=== PATIENT | male | born 1950 | race Caucasian/White ===

== ENCOUNTER 2023-09-19 14:21 | Emergency (ER) | payer OTHER ==
[~2023-09-19] VITALS: Ht 172.7 cm; Wt 79.4 kg
[~2023-09-19 14:21] MED LIST: IBUP400 PO; OMEP20ER PO; SUCR1 PO
[2023-09-19] MEDS ORDERED: STATIN (15:48)
[2023-09-19] MEDS ORDERED: LISI5 (15:48)
[2023-09-19] MEDS ORDERED: HYDROcodone 10-APAP 325 TAB PO ONE (17:20)
[2023-09-19] MEDS ORDERED: HYDROCODONE-AC1 EA10 PO (17:32)
== END 2023-09-19 17:40 | disposition home or self-care (01) ==
LOC: ER 14:21
DX: M25.552 Pain in left hip (principal); Z96.642 Presence of left artificial hip joint; F17.200 Nicotine dependence, unspecified, uncomplicated; I10 Essential (primary) hypertension; E78.5 Hyperlipidemia, unspecified; Z79.899 Other long term (current) drug therapy
CPT/HCPCS: 72170; 99283-25; A9270

== ENCOUNTER 2023-09-29 11:33 | Emergency (ER) | payer OTHER ==
[~2023-09-29] VITALS: Ht 172.7 cm; Wt 77.1 kg
[~2023-09-29 11:33] MED LIST changes: +HYDROCODONE-AC1 EA10 PO; +LISI5; +STATIN
[2023-09-29 12:25] LABS: Mean Corpuscular HGB 25.9 pg (26.0-34.0); Mean Corpuscular HGB Conc 33.3 g/dL (31.5-36.5); Mean Corpuscular Volume 78 fL (80-100); Mean Platelet Volume 10.5 fL (9.1-12.4); Platelet Count 139 K/mm3 (150-400); RDW Coefficient Variation 20.6 % (11.7-14.2); RDW Standard Deviation 46.5 fL (35.1-46.3); Red Blood Cell Count 2.16 M/mm3 (4.30-5.90); White Blood Cell Count 20.48 K/mm3 (4.00-11.30)
[2023-09-29 12:33] LABS: Hemoglobin 5.6 g/dL (13.5-17.5)
[2023-09-29 12:34] LABS: Hematocrit 16.8 % (37.0-53.0)
[2023-09-29 12:55] LABS: Albumin, Blood 3.4 g/dL (3.4-5.0); Albumin/Globulin Ratio 0.8 (0.8-1.8); Bilirubin, Total 0.7 mg/dL (0.1-1.0); Bun/Creatinine Ratio 19.1 (12.0-20.0); Calcium, Blood 9.1 mg/dL (8.5-10.1); Creatinine, Blood 0.84 mg/dL (0.60-1.20); Globulin, Blood 4.3 g/dL (2.2-4.0); Potassium, Blood 4.1 mmol/L (3.5-5.5); Total Protein, Blood 7.7 g/dL (6.4-8.2)
[2023-09-29 12:56] LABS: BAND PERCENT MAN 13 % (0-8); BASOPHILS PERCENT MAN 0 % (0-2); BLASTS PERCENT MAN 2 % (0-0); EOSINOPHILS PERCENT MAN 1 % (0-6); LYMPHOCYTES ABSOLUTE MAN 1.43 K/mm3 (0.84-5.20); LYMPHOCYTES PERCENT MAN 7 % (21-46); METAMYELOCYTE ABSOLUTE MAN 1.22 K/mm3 (0.00-0.00); METAMYELOCYTE PERCENT MAN 6 % (0-0); MONOCYTES PERCENT MAN 0 % (4-13); MYELOCYTE ABSOLUTE MAN 1.63 K/mm3 (0.00-0.00); MYELOCYTE PERCENT MAN 8 % (0-0); NEUTROPHILS ABSOLUTE MAN 15.56 K/mm3 (1.96-9.15); SEG NEUTROPHILS PERCENT MAN 63 % (41-73); TOTAL CELLS COUNTED 100
[2023-09-29 13:53] LABS: International Normalized Ratio 1.05
[2023-09-29] MEDS ORDERED: NS 1,000 ML IV ONE (14:44)
[2023-09-29] MEDS ORDERED: NS 1,000 ML IV SCH (17:25)
[2023-09-29 21:06] LABS: Hematocrit 20.6 % (37.0-53.0)
[2023-10-03] MEDS ORDERED: STIOLTO RESPIMAT4 G1 (12:19)
[2023-10-03] MEDS ORDERED: LISI5 PO (12:19)
[2023-10-03] MEDS ORDERED: Aspir 8181 MG PO (12:19)
[2023-10-03] MEDS ORDERED: ALBU90OI INH (12:19)
[2023-10-03] MEDS ORDERED: MULVITA PO (12:20)
[2023-10-03] MEDS ORDERED: GUAI200 PO (12:20)
[2023-11-01] MEDS ORDERED: DILT120 PO (11:54)
[2023-11-01] MEDS ORDERED: FAMO20 PO (11:55)
[2023-11-01] MEDS ORDERED: TRAM50 PO (11:55)
[2023-11-01] MEDS ORDERED: MIRALAX17 GM PO (11:55)
[2023-11-11] MEDS ORDERED: TRAM50 PO (10:53)
== END 2023-09-29 22:36 | disposition home or self-care (01) ==
LOC: ER 11:33
PROVIDERS: Physician Assistant; Student in an Organized Health Care Education/Training Program
DX: D64.9 Anemia, unspecified (principal); D72.829 Elevated white blood cell count, unspecified; R06.00 Dyspnea, unspecified; C96.9 Malignant neoplasm of lymphoid, hematopoietic and related tissue, unspecified; Z79.899 Other long term (current) drug therapy; I10 Essential (primary) hypertension; J44.9 Chronic obstructive pulmonary disease, unspecified; F17.200 Nicotine dependence, unspecified, uncomplicated
CPT/HCPCS: 36430; 71046; 71260; 80053; 83880; 84484; 85014; 85018; 85025; 85379; 85610; 85730; 86850; 86900; 86901; 86923; 93005; 93010; 99285-25; J7030; P9016; Q9967

== ENCOUNTER 2024-01-16 10:59 | Observation (INO) | payer OTHER ==
[2024-01-16] VITALS (11 sets, daily range): BP systolic 106–135; BP diastolic 61–82
[~2024-01-16] VITALS: Ht 172.7 cm; Wt 55.6 kg
[~2024-01-16 10:59] MED LIST changes: +ALBU90OI INH; +Aspir 8181 MG PO; +DILT120 PO; +FAMO20 PO; +GUAI200 PO; +LISI5 PO; +MIRALAX17 GM PO; +MULVITA PO; +OXYC5 PO; +STIOLTO RESPIMAT4 G1; +TRAM50 PO
[2024-01-16] MEDS ORDERED: [UNRECOGNIZED DRUG - OTHER] (11:20)
[2024-01-16 11:48] LABS: PCO2 Venous 34.1 mmHg (38-42); pH Blood Venous 7.43 (7.34-7.37)
[2024-01-16 11:49] LABS: Base Excess Venous -1.4 mmol/L; Bicarbonate Venous 23.4 mmol/L (24.0-30.0)
[2024-01-16 12:06] LABS: Albumin, Blood 2.8 g/dL (3.4-5.0); Albumin/Globulin Ratio 0.7 (0.8-1.8); Bilirubin, Total 0.6 mg/dL (0.1-1.0); Bun/Creatinine Ratio 23.2 (12.0-20.0); Calcium, Blood 6.5 mg/dL (8.5-10.1); Creatinine, Blood 1.12 mg/dL (0.60-1.20); Potassium, Blood 3.7 mmol/L (3.5-5.5); Total Protein, Blood 6.8 g/dL (6.4-8.2)
[2024-01-16 12:17] LABS: Hematocrit 18.8 % (37.0-53.0); Hemoglobin 6.2 g/dL (13.5-17.5); Mean Corpuscular HGB 28.2 pg (26.0-34.0); Mean Corpuscular Volume 86 fL (80-100); Mean Platelet Volume 11.1 fL (9.1-12.4); NRBC ABSOLUTE 0.71 K/mm3 (0.00-0.02); NRBC Auto 1.8 /100 WBC (0.0-0.2); RDW Coefficient Variation 16.4 % (11.7-14.2); RDW Standard Deviation 50.1 fL (35.1-46.3); White Blood Cell Count 38.86 K/mm3 (4.00-11.30)
[2024-01-16] MEDS ORDERED: CALCIUM GLUC IN NACL, ISO-OSM 50 ML IV ONE (12:20)
[2024-01-16 12:25] LABS: Platelet Count 32 K/mm3 (150-400)
[2024-01-16 12:51] LABS: BAND PERCENT MAN 16 % (0-8); BASOPHILS ABSOLUTE MAN 0.38 K/mm3 (0.00-0.23); BASOPHILS PERCENT MAN 1 % (0-2); BLASTS PERCENT MAN 8 % (0-0); EOSINOPHILS PERCENT MAN 0 % (0-6); LYMPHOCYTES ABSOLUTE MAN 6.99 K/mm3 (0.84-5.20); LYMPHOCYTES PERCENT MAN 18 % (21-46); METAMYELOCYTE ABSOLUTE MAN 1.55 K/mm3 (0.00-0.00); METAMYELOCYTE PERCENT MAN 4 % (0-0); MONOCYTES ABSOLUTE MAN 1.55 K/mm3 (0.16-1.47); MONOCYTES PERCENT MAN 4 % (4-13); MYELOCYTE ABSOLUTE MAN 5.44 K/mm3 (0.00-0.00); MYELOCYTE PERCENT MAN 14 % (0-0); NEUTROPHILS ABSOLUTE MAN 19.43 K/mm3 (1.96-9.15); PROMYELOCYTE ABSOLUTE MAN 0.38 K/mm3 (0.00-0.00); PROMYELOCYTE PERCENT MAN 1 % (0-0); SEG NEUTROPHILS PERCENT MAN 34 % (41-73); TOTAL CELLS COUNTED 100
[2024-01-16] MEDS ORDERED: NS 1,000 ML BAG IR ONE (13:20)
[2024-01-16] MEDS ORDERED: NS 1,000 ML IV SCH (13:25)
[2024-01-16] MEDS ORDERED: Polyethylene Glycol 3350 17 gm PO PRN (14:05)
[2024-01-16] MEDS ORDERED: Ondansetron HCl 2 MG / ML 2ML Vial IV PRN (14:05)
[2024-01-16] MEDS ORDERED: Acetaminophen 325 MG TABLET PO PRN (14:05)
[2024-01-16] MEDS ORDERED: Albuterol HFA200 ACT/6.7 GM INH INH PRN (14:10)
[2024-01-16] MEDS ORDERED: OxyCODONE HCL 5 MG TAB PO PRN (14:10)
[2024-01-16] MEDS ORDERED: Azithromycin 500 MG in NS 250 ML IV SCH (14:30)
[2024-01-16] MEDS ORDERED: CefTRIAXone Sodium 1,000 MG in NS 100 ML IV SCH (14:30)
[2024-01-16] MEDS ORDERED: CALCIUM GLUC IN NACL, ISO-OSM 100 ML IV ONE (15:20)
[2024-01-16 15:41] LABS: Adenovirus Not Detected (NOT DETECT); Bordetella pertussis Not Detected (NOT DETECT); Chlamydophila pneumoniae Not Detected (NOT DETECT); Coronavirus 229E Not Detected (NOT DETECT); Coronavirus HKU1 Not Detected (NOT DETECT); Coronavirus NL63 Not Detected (NOT DETECT); Coronavirus OC43 Not Detected (NOT DETECT); Human Metapneumovirus Not Detected (NOT DETECT); Human Rhinovirus/Enterovirus Not Detected (NOT DETECT); Influenza A/2009-H1 Not Detected (NOT DETECT); Influenza A/H1 Not Detected (NOT DETECT); Influenza A/H3 Not Detected (NOT DETECT); Influenza B Not Detected (NOT DETECT); Mycoplasma pneumoniae Not Detected (NOT DETECT); Parainfluenza Virus 1 Not Detected (NOT DETECT); Parainfluenza Virus 2 Not Detected (NOT DETECT); Parainfluenza Virus 3 Not Detected (NOT DETECT); Parainfluenza Virus 4 Not Detected (NOT DETECT); Respiratory Syncytial Virus Not Detected (NOT DETECT); SARS-Cov-2 (COVID-19), BioFire Not Detected (NOT DETECT)
[2024-01-16] MEDS ORDERED: NS 250 ML IV PRN (16:00)
[2024-01-16] MEDS ORDERED: Calcitriol 0.25 MCG Cap PO SCH (16:00)
[2024-01-16] MEDS ORDERED: NS 500 ML IV SCH (16:00)
[2024-01-16] MEDS ORDERED: Calcium Carbonate 500 MG Tab Chew PO SCH (17:30)
--- NOTE | 2024-01-16 19:03 | NUR ---
Admit/end of shift note. Pt admitted from ED to PCU20. Pt was oriented to room and call light system. First unit of PRBC was running during transfer, Pt tolerated well. Second unit is currently infusing. Pt has been OOB multiple times, noted tachypnea with movement. Voiding small amount. Fair PO intake. Hard stool this evening, possibly needs stool softener due to chronic opiates. was updated after Pt arrival to unit. 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 Pt is able to make needs known , call light is within reach.
[2024-01-16] MEDS ORDERED: Famotidine 20 MG Tab PO SCH (21:00)
[2024-01-16] MEDS ORDERED: Lactobacil 2-S.Thermo-Bifido 1 1 Cap PO SCH (21:00)
[2024-01-16 22:26] LABS: Hematocrit 22.8 % (37.0-53.0); Hemoglobin 7.6 g/dL (13.5-17.5)
[2024-01-17 03:50] LABS: Hematocrit 23.7 % (37.0-53.0); Hemoglobin 7.9 g/dL (13.5-17.5); Mean Corpuscular HGB 27.9 pg (26.0-34.0); Mean Corpuscular HGB Conc 33.3 g/dL (31.5-36.5); Mean Corpuscular Volume 84 fL (80-100); NRBC ABSOLUTE 0.54 K/mm3 (0.00-0.02); NRBC Auto 1.4 /100 WBC (0.0-0.2); RDW Coefficient Variation 15.9 % (11.7-14.2); RDW Standard Deviation 47.8 fL (35.1-46.3); Red Blood Cell Count 2.83 M/mm3 (4.30-5.90)
[2024-01-17 03:52] LABS: Platelet Count 25 K/mm3 (150-400)
[2024-01-17 03:53] VITALS: BP 117/69
[2024-01-17 04:04] LABS: Albumin, Blood 2.5 g/dL (3.4-5.0); Albumin/Globulin Ratio 0.7 (0.8-1.8); Bilirubin, Total 0.5 mg/dL (0.1-1.0); Bun/Creatinine Ratio 22.8 (12.0-20.0); Calcium, Blood 6.4 mg/dL (8.5-10.1); Creatinine, Blood 1.01 mg/dL (0.60-1.20); Globulin, Blood 3.7 g/dL (2.2-4.0); Total Protein, Blood 6.2 g/dL (6.4-8.2)
[2024-01-17 04:22] LABS: BAND PERCENT MAN 23 % (0-8); BASOPHILS PERCENT MAN 0 % (0-2); BLASTS PERCENT MAN 5 % (0-0); EOSINOPHILS ABSOLUTE MAN 0.38 K/mm3 (0.00-0.68); EOSINOPHILS PERCENT MAN 1 % (0-6); LYMPHOCYTES ABSOLUTE MAN 9.88 K/mm3 (0.84-5.20); LYMPHOCYTES PERCENT MAN 26 % (21-46); METAMYELOCYTE ABSOLUTE MAN 1.14 K/mm3 (0.00-0.00); METAMYELOCYTE PERCENT MAN 3 % (0-0); MONOCYTES ABSOLUTE MAN 2.66 K/mm3 (0.16-1.47); MONOCYTES PERCENT MAN 7 % (4-13); MYELOCYTE ABSOLUTE MAN 4.56 K/mm3 (0.00-0.00); MYELOCYTE PERCENT MAN 12 % (0-0); PROMYELOCYTE ABSOLUTE MAN 0.38 K/mm3 (0.00-0.00); PROMYELOCYTE PERCENT MAN 1 % (0-0); SEG NEUTROPHILS PERCENT MAN 22 % (41-73); TOTAL CELLS COUNTED 100
[2024-01-17] MEDS ORDERED: Potassium Chloride 20 MEQ TabCR PO ONE (04:30)
--- NOTE | 2024-01-17 04:45 | NUR ---
SHIFT SUMMARY THIS RN ASSUMED CARE AT APPROX 1915. NO ACUTE EVENTS OVERNIGHT. PATIENT SLEPT T/O - EASILY AROUSABLE WITH VERBAL STIMULI. ALERT AND ORIENTED X4. PERRLA. MOVES ALL EXTREMITIES EQUALLY WITH GENERALIZED WEAKNESS T/O. RECEIVED A TOTAL OF 2 UNITS PRBCs. HEMOGLOBIN 7.9 THIS MORNING. MD WARD NOTIFIED OF CRITICALLY LOW PLATELET COUNT OF 25 (SEE CRITICAL VALUE DOCUMENTATION). VSS. TELEMETRY SHOWING SINUS 80s-90s. DENIES CHEST PAIN, PRESSURE. ON BASELINE 2L VIA NC, SATs >90%. MILD TACHYPNEA AT REST, RR 20-25, WITH OCCASIONAL CONGESTED COUGH. PATIENT USES URINAL INDEPENDENTLY IN BED. REPOSITIONS HIMSELF WITH MINIMAL TO NO ASSIST FROM STAFF. CALL LIGHT IN REACH. WILL CONTINUE TO MONITOR AND REPORT TO ONCOMING RN.
[2024-01-17] MEDS ORDERED: Potassium Chloride 40 MEQ in NS 250 ML IV ONE (07:30)
[2024-01-17] MEDS ORDERED: Calcium Chloride 10% 2,000 MG in NS 100 ML IV ONE (07:35)
[2024-01-17] MEDS ORDERED: Furosemide 20 MG Tab PO ONE (07:40)
[2024-01-17 07:41] VITALS: BP 116/63
[2024-01-17] MEDS ORDERED: LevoFLOXacin 500MG/D5W 100ML 100 ML IV SCH (09:00)
[2024-01-17] MEDS ORDERED: CALC.25 PO (11:47)
[2024-01-17] MEDS ORDERED: Acetaminophen650 M1 PO (11:47)
[2024-01-17] MEDS ORDERED: Calcium Carbon500 MG PO (11:48)
[2024-01-17] MEDS ORDERED: FAMO20 PO (11:49)
[2024-01-17] MEDS ORDERED: VISBIOME 112.51 EACH PO (11:51)
[2024-01-17] MEDS ORDERED: LEVFLO500 PO (11:52)
[2024-01-17] MEDS ORDERED: DOXY100 PO (13:18)
[2024-01-17] MEDS ORDERED: [UNRECOGNIZED DRUG - OTHER] PO (13:19)
--- NOTE | 2024-01-17 14:30 | NUR ---
Discharge note. Pt and were given discharge instructions. All questions were answered. IV sites removed. Pt was escorted to the door. All belongings were taken with the Pt. to transport home.
== END 2024-01-17 14:45 | disposition home or self-care (01) ==
LOC: ER 10:59 → PCU 11:00 → ER 14:40 → PCU 15:03
PROVIDERS: Emergency Medicine; Family Medicine; ADMIT Internal Medicine
DX: D75.81 Myelofibrosis (principal); D69.6 Thrombocytopenia, unspecified; E83.51 Hypocalcemia; J44.9 Chronic obstructive pulmonary disease, unspecified; J96.21 Acute and chronic respiratory failure with hypoxia; R05.3 Chronic cough; R53.81 Other malaise; E87.6 Hypokalemia; I10 Essential (primary) hypertension; E78.5 Hyperlipidemia, unspecified; M16.10 Unilateral primary osteoarthritis, unspecified hip; C96.6 Unifocal Langerhans-cell histiocytosis; G89.29 Other chronic pain; N48.6 Induration penis plastica; Z51.5 Encounter for palliative care; Z87.891 Personal history of nicotine dependence; Z99.81 Dependence on supplemental oxygen
CPT/HCPCS: 0202U; 36415; 36430; 71045; 80053; 82330; 82803; 83880; 84145; 84484; 85014; 85018; 85025; 86850; 86900; 86901; 86923; 93005; 93010; 94762; 96365; 96367; 96368; 96375; 99285-25; A9270; G0378; J0456; J0612; J0696; J1956; J3480; J7030; J7050; P9016

== ENCOUNTER 2024-01-28 17:00 | Inpatient (IN) | payer OTHER ==
[~2024-01-28] VITALS: Ht 173 cm; Wt 56.2 kg
[~2024-01-28 17:00] MED LIST changes: +Acetaminophen650 M1 PO; +CALC.25 PO; +Calcium Carbon500 MG PO; +DOXY100 PO; +LEVFLO500 PO; +VISBIOME 112.51 EACH PO; +[UNRECOGNIZED DRUG - OTHER]; +[UNRECOGNIZED DRUG - OTHER] PO
[2024-01-28] MEDS ORDERED: [UNRECOGNIZED DRUG - OTHER] (17:19)
[2024-01-28 17:46] LABS: Hematocrit 18.9 % (37.0-53.0); Hemoglobin 6.4 g/dL (13.5-17.5); Mean Corpuscular HGB 27.6 pg (26.0-34.0); Mean Corpuscular HGB Conc 33.9 g/dL (31.5-36.5); Mean Corpuscular Volume 82 fL (80-100); NRBC Auto 0.2 /100 WBC (0.0-0.2); RDW Coefficient Variation 15.7 % (11.7-14.2); Red Blood Cell Count 2.32 M/mm3 (4.30-5.90); White Blood Cell Count 46.31 K/mm3 (4.00-11.30)
[2024-01-28 17:50] LABS: Albumin, Blood 2.4 g/dL (3.4-5.0); Albumin/Globulin Ratio 0.6 (0.8-1.8); Bilirubin, Total 0.6 mg/dL (0.1-1.0); Bun/Creatinine Ratio 19.5 (12.0-20.0); Calcium, Blood 6.1 mg/dL (8.5-10.1); Creatinine, Blood 2.36 mg/dL (0.60-1.20); Globulin, Blood 4.2 g/dL (2.2-4.0); Potassium, Blood 4.3 mmol/L (3.5-5.5); Total Protein, Blood 6.6 g/dL (6.4-8.2)
[2024-01-28 17:51] LABS: Platelet Count 23 K/mm3 (150-400)
[2024-01-28 18:15] LABS: BAND PERCENT MAN 4 % (0-8); BASOPHILS ABSOLUTE MAN 0.46 K/mm3 (0.00-0.23); BASOPHILS PERCENT MAN 1 % (0-2); EOSINOPHILS PERCENT MAN 0 % (0-6); LYMPHOCYTES ABSOLUTE MAN 13.42 K/mm3 (0.84-5.20); LYMPHOCYTES PERCENT MAN 29 % (21-46); METAMYELOCYTE ABSOLUTE MAN 0.92 K/mm3 (0.00-0.00); METAMYELOCYTE PERCENT MAN 2 % (0-0); MONOCYTES ABSOLUTE MAN 2.31 K/mm3 (0.16-1.47); MONOCYTES PERCENT MAN 5 % (4-13); NEUTROPHILS ABSOLUTE MAN 19.45 K/mm3 (1.96-9.15); SEG NEUTROPHILS PERCENT MAN 38 % (41-73); TOTAL CELLS COUNTED 100
[2024-01-28 18:16] LABS: BLASTS PERCENT MAN 9 % (0-0); MYELOCYTE ABSOLUTE MAN 5.09 K/mm3 (0.00-0.00); MYELOCYTE PERCENT MAN 11 % (0-0); PROMYELOCYTE ABSOLUTE MAN 0.46 K/mm3 (0.00-0.00); PROMYELOCYTE PERCENT MAN 1 % (0-0)
[2024-01-28] MEDS ORDERED: NS 1,000 ML IV SCH ×3 (18:35→22:00)
[2024-01-28] MEDS ORDERED: CefTRIAXone Sodium 1,000 MG in NS 100 ML IV ONE (18:35)
[2024-01-28] MEDS ORDERED: Azithromycin 500 MG in NS 250 ML IV ONE (18:35)
[2024-01-28 19:21] LABS: PCO2 Venous 26.9 mmHg (38-42); pH Blood Venous 7.57 (7.34-7.37)
[2024-01-28 19:22] LABS: Base Excess Venous 2.8 mmol/L; Bicarbonate Venous 26.8 mmol/L (24.0-30.0)
[2024-01-28] MEDS ORDERED: OxyCODONE 7.5 mg/Acetam 325 mg TABLET PO ONE (20:45)
[2024-01-28] MEDS ORDERED: OxyCODONE HCL 5 MG TAB PO PRN (21:20)
[2024-01-28] MEDS ORDERED: Calcium Carbonate 500 MG Tab Chew PO PRN (21:20)
[2024-01-28] MEDS ORDERED: Ipratropium/Albuterol SulF 2.5-0.5MG/3 ML Amp INH SCH (21:25)
[2024-01-28] MEDS ORDERED: Lactated Ringer's 1,000 ML IV SCH (21:25)
[2024-01-28] MEDS ORDERED: Acetaminophen 325 MG TABLET PO PRN (21:35)
[2024-01-28] MEDS ORDERED: Magnesium Hydroxide Conc 10 ML UDC PO PRN (21:35)
[2024-01-28] MEDS ORDERED: Albuterol HFA200 ACT/6.7 GM INH INH PRN (21:40)
[2024-01-28] MEDS ORDERED: NS 250 ML IV PRN (22:35)
[2024-01-28 22:37] VITALS: BP 96/64
[2024-01-28 22:54] VITALS: BP 92/70
[2024-01-28 23:16] VITALS: BP 95/64
--- NOTE | 2024-01-28 23:31 | NUR ---
ADMISSION/UPDATE PATIENT ARRIVED TO PCU 02 AROUND 0, PATIENT MOVED TO PCU BED WITH ASSISTANCE OF STAFF. FIRST UNIT PRBC COMPLETED IN ER. SENT FOR SECOND UNIT WHEN PATIENT ARRIVED TO UNIT. PATIENT ALERT, ORIENTED TO SELF AT THIS TIME, PLEASANTLY CONFUSED. BED ALARM ON FOR SAFETY. BP SOFT ON ARRIVAL, TELE READING SR 100s W/ QTC .52. NOTED PETECHIAE/BRUISING ON LOWER RIBS, ON ABDOMEN TO LOWER TORSO. ER PLACED DRESSING TO COCCYX. DRESSING PULLED BACK WITH NOTED REDNESS AND SMALL OPEN SPOT, BARELY BLANCHABLE. ATTENDS IN PLACE D/T INCONTNIENCE, WILL PLACE LEMA PER DR. MARIA ORDER. CRITICAL LABS CALLED TO THIS RN. NO NEW ORDERS RECEIVED. ORDER WAS PLACED FOR LEMA INSERTION ON ADMISSION, PER DR. MARIA, INSERT LEMA D/T BRENDA, SEND UA AND MONITOR I/Os. PATIENT REMAINS STABLE AT THIS TIME. CALL LIGHT IN REACH.
[2024-01-29] VITALS (12 sets, daily range): BP systolic 94–117; BP diastolic 58–83
[2024-01-29 00:01] LABS: Source, Urine Foley catheter
[2024-01-29 00:08] LABS: Bilirubin, Urine Neg (Neg); Blood, Urine 3+ (Neg); Glucose Qualitative, Urine Neg (Neg); Ketones, Urine Neg (Neg); Leukocyte Esterase, Urine 1+ (Neg); Nitrite, Urine Neg (Neg); Protein, Urine 3+ (Neg); Urobilinogen, Urine NORM (Normal)
[2024-01-29 00:23] LABS: Appearance, Urine Hazy (Clear); Color, Urine Yellow (P-Yellow)
[2024-01-29 00:24] LABS: Amorphous Heavy (0-Heavy); Bacteria Many /hpf; Mucus Light (0-Heavy); Squamous Epithelial Cells Few /hpf (Few)
[2024-01-29 03:31] LABS: Hemoglobin 7.7 g/dL (13.5-17.5); Mean Corpuscular HGB 28.7 pg (26.0-34.0); Mean Corpuscular HGB Conc 33.5 g/dL (31.5-36.5); Mean Corpuscular Volume 86 fL (80-100); NRBC ABSOLUTE 0.04 K/mm3 (0.00-0.02); NRBC Auto 0.1 /100 WBC (0.0-0.2); RDW Coefficient Variation 15.5 % (11.7-14.2); RDW Standard Deviation 48.7 fL (35.1-46.3); Red Blood Cell Count 2.68 M/mm3 (4.30-5.90); White Blood Cell Count 30.14 K/mm3 (4.00-11.30)
[2024-01-29 03:37] LABS: Platelet Count 16 K/mm3 (150-400)
[2024-01-29 03:52] LABS: Albumin, Blood 2.3 g/dL (3.4-5.0); Albumin/Globulin Ratio 0.6 (0.8-1.8); Bilirubin, Total 0.6 mg/dL (0.1-1.0); Bun/Creatinine Ratio 21.8 (12.0-20.0); Calcium, Blood 5.4 mg/dL (8.5-10.1); Creatinine, Blood 2.29 mg/dL (0.60-1.20); Potassium, Blood 3.9 mmol/L (3.5-5.5); Total Protein, Blood 6.3 g/dL (6.4-8.2)
[2024-01-29 04:27] LABS: BAND PERCENT MAN 17 % (0-8); BASOPHILS PERCENT MAN 0 % (0-2); BLASTS PERCENT MAN 5 % (0-0); EOSINOPHILS PERCENT MAN 3 % (0-6); LYMPHOCYTES % ATYPICAL MANUAL 1 % (0-0); LYMPHOCYTES ABSOLUTE MAN 11.75 K/mm3 (0.84-5.20); LYMPHOCYTES PERCENT MAN 38 % (21-46); METAMYELOCYTE PERCENT MAN 3 % (0-0); MONOCYTES ABSOLUTE MAN 3.31 K/mm3 (0.16-1.47); MONOCYTES PERCENT MAN 11 % (4-13); MYELOCYTE ABSOLUTE MAN 2.41 K/mm3 (0.00-0.00); MYELOCYTE PERCENT MAN 8 % (0-0); NEUTROPHILS ABSOLUTE MAN 9.34 K/mm3 (1.96-9.15); SEG NEUTROPHILS PERCENT MAN 14 % (41-73); TOTAL CELLS COUNTED 100
--- NOTE | 2024-01-29 06:01 | NUR ---
SHIFT SUMMARY PATIENT ALERT, ORIENTED x1. PLEASANTLY CONFUSED. PATIENT EASILY REDIRECTED. BED ALARM ON FOR SAFETY PATIENT IS RESTLESS. BP SOFT DURING THE NIGHT, MAP >65. PATIENT ON 5L NC, WILL DESAT AND BECOME TACHYPNEIC WITH ANY ACTIVITY. LEMA PLACED PER ORDER ON ADMISSION. PATIENT IS 1 PERSON ASSIST TO BEDSIDE COMMODE. PATIENT HAD LARGE BM THIS SHIFT. PATIENT ALSO RECEIVED 2u PRBCs. SIGNIFICANT NOTED BRUISING/PETECHIAE THROUGHOUT. NO OTHER CHANGES THIS SHIFT, WILL REPORT TO DAY SHIFT RN.
[2024-01-29] MEDS ORDERED: Calcium Gluconate 10% 100 MG/ML INJ IV ONE (06:15)
[2024-01-29] MEDS ORDERED: CALCIUM GLUC IN NACL, ISO-OSM 100 ML IV ONE (06:20)
[2024-01-29] MEDS ORDERED: CALCIUM GLUC IN NACL, ISO-OSM 50 ML IV ONE (07:20)
[2024-01-29] MEDS ORDERED: Calcitriol 0.25 MCG Cap PO SCH (09:00)
[2024-01-29] MEDS ORDERED: Lactobacil 2-S.Thermo-Bifido 1 1 Cap PO SCH (09:00)
[2024-01-29] MEDS ORDERED: Famotidine 20 MG Tab PO SCH (09:00)
[2024-01-29 09:44] LABS: Hematocrit 22.5 % (37.0-53.0); Hemoglobin 7.6 g/dL (13.5-17.5); Mean Corpuscular HGB 28.9 pg (26.0-34.0); Mean Corpuscular HGB Conc 33.8 g/dL (31.5-36.5); Mean Corpuscular Volume 86 fL (80-100); NRBC ABSOLUTE 0.06 K/mm3 (0.00-0.02); NRBC Auto 0.3 /100 WBC (0.0-0.2); RDW Coefficient Variation 15.4 % (11.7-14.2); RDW Standard Deviation 47.5 fL (35.1-46.3); Red Blood Cell Count 2.63 M/mm3 (4.30-5.90); White Blood Cell Count 17.67 K/mm3 (4.00-11.30)
[2024-01-29 09:50] LABS: Platelet Count 15 K/mm3 (150-400)
[2024-01-29 10:11] LABS: BAND PERCENT MAN 16 % (0-8); BASOPHILS PERCENT MAN 0 % (0-2); BLASTS PERCENT MAN 9 % (0-0); EOSINOPHILS PERCENT MAN 0 % (0-6); LYMPHOCYTES PERCENT MAN 17 % (21-46); METAMYELOCYTE ABSOLUTE MAN 1.23 K/mm3 (0.00-0.00); METAMYELOCYTE PERCENT MAN 7 % (0-0); MONOCYTES ABSOLUTE MAN 1.23 K/mm3 (0.16-1.47); MONOCYTES PERCENT MAN 7 % (4-13); MYELOCYTE ABSOLUTE MAN 1.59 K/mm3 (0.00-0.00); MYELOCYTE PERCENT MAN 9 % (0-0); NEUTROPHILS ABSOLUTE MAN 8.65 K/mm3 (1.96-9.15); PLASMA CELL ABSOLUTE MAN 0.17 K/mm3 (0.00-0.00); PLASMA CELLS PERCENT MAN 1 % (0-0); PROMYELOCYTE ABSOLUTE MAN 0.17 K/mm3 (0.00-0.00); PROMYELOCYTE PERCENT MAN 1 % (0-0); SEG NEUTROPHILS PERCENT MAN 33 % (41-73); TOTAL CELLS COUNTED 100
[2024-01-29] MEDS ORDERED: Calcium Carbonate 500 MG Tab Chew PO SCH (12:30)
--- NOTE | 2024-01-29 15:05 | NUR ---
Case Conference: Met with pt and Coco. Pt appears pale and frail, reports feeling SOB but denies pain. states they have been waiting for a consult by an oncologist in [place], ordered by Dr. Montenegro to make recommendations for treatment. However, bedside RN reports Mile at Dr. Montenegro office stated there are no new treatment options, and pt's prognosis is poor. In my discussion with pt's , we did discuss the upcoming appt on February 02. In talking with Coco, I stated it appears very unlikely the patient would be strong enough to tolerate future cancer treatments, and Coco does agree. She began to cry, stating she "just needs to know what the prognosis is." The patient slept through most of the visit, but stated the patient has lost a significant amount of weight over the past month, is barely eating or drinking, and sleeping almost 24 hours a day. I gently mentioned hospice as a possible next step, and she requests discussing this option with Dr. Montenegro tomorrow. Patient is currently dependent of blood transfusions and requires oxygen. Discussed with Dr. Stewart. Will see pt again tomorrow.
--- NOTE | 2024-01-29 15:16 | NUR ---
Patient is a , and connected with [place] [facility] and with [facility] Shabnam Rick. Will f/u with Layla from Palliative tomorrow.
--- NOTE | 2024-01-29 17:44 | NUR ---
SHIFT SUMMARY; ASSUMED CARE AT 0700. A/A/OX2-3 WITH INTERMITANT CONFUSION. PLEASANT AND COOPERATIVE WITHCARE BUT HAS DIFFICULTY FOLLOWING INSTRUCTIONS. 2-4L O2 VIA NC. SATS 92-96% BUT BREATHING BECOMES EXTREMLY LABORED WITH EXERTION BUT MAINTAINS IN 90'S. MOVES SELF ON BED WITH DIFFICULTY AND STATES IS WEAK. LEMA IN PLACE DRAINING TO GRAVITY. MEPILEX TO COCCYX, BRUSING T/O TORSO BOTH FRONT AND BACK. PER NOTES PT HAS HAD FOR A FEW DAYS BUT IS GETTING WORSE, POOR HISTORIAN AT THIS TIME. RAYRAY MET WITH SPOUSE TODAY, RECIEVED PHONE CALL FROM DAINE CASTILLO RN AT [facility] TODAY WHO STATED PT IS ESTABLISHED WITH HER AND SHE WILL CONTINUE TO FOLLOW. SHE STATES DR. COHEN HAD DISCUSSED PT WITH A DOCTOR AND [facility] AND PT MAY HAVE ACUTE LEUKEMIA. PT HAS APPOINTMENT TUESDAY WITH THE DOCTOR AT [facility]. WILL CONTINUE TO MONITOR AND TREAT UNTIL CHANGE OF SHIFT.
[2024-01-29] MEDS ORDERED: CefTRIAXone Sodium 1,000 MG in NS 100 ML IV SCH (19:00)
[2024-01-29] MEDS ORDERED: Azithromycin 500 MG in NS 250 ML IV SCH (21:00)
[2024-01-30] MEDS ORDERED: NS 500 ML IV SCH (03:10)
--- NOTE | 2024-01-30 03:12 | NUR ---
TRANSFER/SHIFT SUMMARY PATIENT MEDICAL NO TELE STATUS. PATIENT ORIENTED x2, ABLE TO MAKE NEEDS KNOWN TO STAFF BUT IS INTERMITTENTLY CONFUSED. PATIENT ON 2-3L NC WITH SPO2 >90%. BP STABLE. LEMA IN PLACE DRAINING DARK YELLOW URINE. PATIENT HAS SLEPT FOR MAJORITY OF SHIFT WITH EXCEPTION OF REPOSITIONING. CALL PLACED TO MEDICAL FLOOR RN FOR REPORT. PATIENT TRANSFERRED TO [facility] WITH ALL BELONGINGS AND CHART.
[2024-01-30 03:20] VITALS: BP 120/72
[2024-01-30 04:00] LABS: Hematocrit 25.6 % (37.0-53.0); Hemoglobin 8.6 g/dL (13.5-17.5); Mean Corpuscular HGB 28.8 pg (26.0-34.0); Mean Corpuscular HGB Conc 33.6 g/dL (31.5-36.5); Mean Corpuscular Volume 86 fL (80-100); NRBC ABSOLUTE 0.09 K/mm3 (0.00-0.02); NRBC Auto 0.3 /100 WBC (0.0-0.2); RDW Coefficient Variation 15.8 % (11.7-14.2); RDW Standard Deviation 49.3 fL (35.1-46.3); Red Blood Cell Count 2.99 M/mm3 (4.30-5.90); White Blood Cell Count 32.22 K/mm3 (4.00-11.30)
[2024-01-30 04:07] LABS: Platelet Count 19 K/mm3 (150-400)
[2024-01-30 04:21] LABS: Albumin, Blood 2.2 g/dL (3.4-5.0); Anion Gap 15 mmol/L (3-11); Blood Urea Nitrogen 48 mg/dL (8-24); Bun/Creatinine Ratio 27.1 (12.0-20.0); CO2, Blood 22 mmol/L (21-32); Calcium, Blood 6.1 mg/dL (8.5-10.1); Chloride, Blood 102 mmol/L (98-108); Creatinine, Blood 1.77 mg/dL (0.60-1.20); Glomerular Filtration Rate 40 (60-); Glucose, Blood 88 mg/dL (70-99); Magnesium, Blood 2.2 mg/dL (1.6-2.4); Phosphorus, Blood 5.8 mg/dL (2.5-4.9); Potassium, Blood 3.2 mmol/L (3.5-5.5); Sodium, Blood 136 mmol/L (136-145)
[2024-01-30] MEDS ORDERED: Potassium Chloride 20 MEQ TabCR PO ONE (04:35)
--- NOTE | 2024-01-30 04:44 | NUR ---
TOOK REPORT ON PT COMING FROM PCU 02 FROM RN @ 0310. PT ARRIVED ON UNIT @ 0317 IN BED AND SWITCHED BEDS OUT. PT HAD ALL BELONGINGS WITH THEM AND WAS ON 3L/NC. ASSUMED CARE OF PT.
--- NOTE | 2024-01-30 04:46 | NUR ---
AM LABS SHOWED PT CALCIUM 6.1 UP FROM 5.4. POTASSIUM 3.2 40 MEQ PO X 1 ORDERED. PHOS 5.8. WBC INCREASED FROM 17.67 TO 32.22. HOSPITALIST NOTIFIED AND STATED THAT THEY WILL LOOK OVER CHART AND SUBMIT ORDERS FOR TREATMENT.
[2024-01-30] MEDS ORDERED: CALCIUM GLUC IN NACL, ISO-OSM 50 ML IV ONE (04:55)
--- NOTE | 2024-01-30 04:56 | NUR ---
UPON ADMIT TO FLOOR HEAD TO TOE ASSESSMENT PERFORMED. THIS RN AGREES WITH PCU NURSE SHIFT ASSESSMENT.
[2024-01-30 07:26] VITALS: BP 126/80
[2024-01-30] MEDS ORDERED: Calcium Acetate 667 MG Gel Cap PO SCH (08:30)
[2024-01-30 12:11] LABS: Base Excess Venous -3.3 mmol/L; Bicarbonate Venous 22.1 mmol/L (24.0-30.0); PCO2 Venous 31.6 mmHg (38-42); pH Blood Venous 7.43 (7.34-7.37)
[2024-01-30 15:12] VITALS: BP 103/80
--- NOTE | 2024-01-30 15:27 | NUR ---
DR. LOW NOTIFIED WITH C/O ABNORMAL VITAL SIGNS. RT PLANS TO PLACE PT ON HEATED HIGHFLOW IN HOPES OF DECREASING WOB. CONTINUE TO MONTITOR BLOOD PRESSURE AND HEART RATE
[2024-01-30] MEDS ORDERED: LORazepam 2 MG/ML 1ML Injection IV ONE (16:35)
[2024-01-30] MEDS ORDERED: LORazepam 1 MG Tab PO PRN (16:35)
--- NOTE | 2024-01-30 16:51 | NUR ---
Mile Pereira from Dr. Toth's office is going to see pt this afternoon to further discuss pt's options. Mile tells me the reason it has taken so long for the oncology consult from the in [place] is because he was waiting on test results and wanted to consult when the tests had completed. No other new information at this time, will wait until pt has his virtual appt with [facility].
[2024-01-30 17:58] VITALS: BP 122/87
--- NOTE | 2024-01-30 18:04 | NUR ---
PT PULSE 125, RR 32. PT IS HALLUCINATING. DR. LOW NOTIFIED. ORDER FOR EKG PLACED.
--- NOTE | 2024-01-30 19:10 | NUR ---
PT IS HALLUCINATING, PULLING AIRVO AND PULSE OX OFF, CONFUSED AND VERY HARD TO UNDERSTAND. EKG SHOWS SINUS RHYTHM. DISCUSSED WITH MD AND SONG LYRICIST CONCERN FOR PT CONTINUED TACHYCARDIA AND TACYPNEA.
[2024-01-30] MEDS ORDERED: NS 1,000 ML IV SCH (20:20)
[2024-01-30 20:26] VITALS: BP 114/85
[2024-01-31 04:00] VITALS: BP 129/86
[2024-01-31 04:40] LABS: Hematocrit 26.6 % (37.0-53.0); Hemoglobin 8.6 g/dL (13.5-17.5); Mean Corpuscular HGB 28.4 pg (26.0-34.0); Mean Corpuscular HGB Conc 32.3 g/dL (31.5-36.5); Mean Corpuscular Volume 88 fL (80-100); NRBC ABSOLUTE 0.18 K/mm3 (0.00-0.02); NRBC Auto 0.4 /100 WBC (0.0-0.2); RDW Coefficient Variation 16.2 % (11.7-14.2); RDW Standard Deviation 51.5 fL (35.1-46.3); Red Blood Cell Count 3.03 M/mm3 (4.30-5.90); White Blood Cell Count 44.83 K/mm3 (4.00-11.30)
[2024-01-31 04:48] LABS: Platelet Count 21 K/mm3 (150-400)
--- NOTE | 2024-01-31 04:49 | NUR ---
NOC SHIFT SUMMARY PT REQUIRING 6L O2 NC ALL NIGHT. HE HAS BEEN CONFUSED AND HALLUCINATING, FREQUENTLY PULLING OFF O2 AND SPO2 MONITOR. ABLE TO AVOID RESTRAINTS WITH VERY FREQUENT INTERVENTIONS. HIS RR HAS BEEN IN THE 30S WITH LABORED BREATHING AND HIS URINE OUTPUT WAS LOW ALL DAY. HRS HAVE BEEN IN THE 100S-120. ALL OF THE ABOVE DISCUSSED WITH DR. GRIFFIN. ORDERS RECEIVED FOR A LACTIC ACID AND NS @100 X 1 LITER. WHEN HE PULLS HIS O2 OFF HE DESATS TO 79%-83%. FALL PRECAUTIONS IN PLACE, BED ALARM ON, CALL LIGHT WITHIN REACH.
[2024-01-31 05:00] LABS: Albumin, Blood 2.2 g/dL (3.4-5.0); Anion Gap 14 mmol/L (3-11); Blood Urea Nitrogen 49 mg/dL (8-24); Bun/Creatinine Ratio 37.7 (12.0-20.0); CO2, Blood 21 mmol/L (21-32); Calcium, Blood 6.6 mg/dL (8.5-10.1); Chloride, Blood 106 mmol/L (98-108); Glomerular Filtration Rate 58 (60-); Glucose, Blood 92 mg/dL (70-99); Phosphorus, Blood 5.7 mg/dL (2.5-4.9); Potassium, Blood 3.4 mmol/L (3.5-5.5); Sodium, Blood 138 mmol/L (136-145)
[2024-01-31 05:20] LABS: BAND PERCENT MAN 9 % (0-8); BASOPHILS PERCENT MAN 0 % (0-2); BLASTS PERCENT MAN 6 % (0-0); EOSINOPHILS PERCENT MAN 0 % (0-6); LYMPHOCYTES % ATYPICAL MANUAL 3 % (0-0); LYMPHOCYTES ABSOLUTE MAN 18.82 K/mm3 (0.84-5.20); LYMPHOCYTES PERCENT MAN 39 % (21-46); METAMYELOCYTE ABSOLUTE MAN 0.89 K/mm3 (0.00-0.00); METAMYELOCYTE PERCENT MAN 2 % (0-0); MONOCYTES ABSOLUTE MAN 4.93 K/mm3 (0.16-1.47); MONOCYTES PERCENT MAN 11 % (4-13); MYELOCYTE ABSOLUTE MAN 8.06 K/mm3 (0.00-0.00); MYELOCYTE PERCENT MAN 18 % (0-0); NEUTROPHILS ABSOLUTE MAN 9.41 K/mm3 (1.96-9.15); SEG NEUTROPHILS PERCENT MAN 12 % (41-73); TOTAL CELLS COUNTED 100
[2024-01-31 07:21] VITALS: BP 126/87
[2024-01-31] MEDS ORDERED: Potassium Chloride 10 Meq Tablet SA PO ONE (08:35)
[2024-01-31] MEDS ORDERED: CALCIUM GLUC IN NACL, ISO-OSM 100 ML IV ONE (08:50)
--- NOTE | 2024-01-31 09:48 | NUR ---
DISCUSSED LEMA CATHETER WITH DR. LOW. PER DR. LOW KEEP LEMA CATHETER IN FOR STRICT I&O'S, REMAINS CRITICALLY ILL.
[2024-01-31] MEDS ORDERED: Piperacillin/Tazobactam Sod 4.5 GM in NS 100 ML IV SCH (12:30)
[2024-01-31] MEDS ORDERED: Vancomycin HCL 1,500 MG in NS 250 ML IV ONE (12:40)
[2024-01-31] MEDS ORDERED: Lactated Ringer's 1,000 ML IV SCH (14:50)
[2024-01-31 15:23] VITALS: BP 115/79
[2024-01-31] MEDS ORDERED: Morphine Sulfate 4 MG/1 ML Injection IV PRN (15:55)
--- NOTE | 2024-01-31 18:06 | NUR ---
SHIFT SUMMARY: PT IS A/O X SELF AND FAMILY. PT HAS BEEN CONFUSED AND HAS BEEN OBSERVED TALKING TO HIMSELF, POSSIBLE HALLUCINATIONS, WHEN ALONE IN ROOM. PT IS PLEASANT AND COOPERATIVE WITH CARE. ATTEMPTED TO GET OOB ALONE ONE TIME TODAY. DOES OCCASIONALLY PULL OFF OXYGEN TUBING. PT ON 4 LPM VIA NC. HE DOES MOUTH BREATH WHEN ASLEEP AND NEEDS O2 INCREASED TO 6 LPM VIA NC TO KEEP O2 SATS ABOVE 90%. HE DROPS TO 86% WHEN HE TAKES OXYGEN OFF. HE DOES GET SOB AT TIMES. BREATHING TX HELP SIGNIFICANTLY. PT NPO THROUGHOUT THE DAY DUE TO CONCERNS OF ASPIRATION. PT REPOSITIONED Q2 HOURS. PT DOES MOVE SELF IN BED AND REPOSITIONS SELF. PT HAS HAD ORAL CARE Q 2 HOURS. EVAL DONE BY DENTAL HYGIENIST AND PROVIDED ORAL GEL, DOES NOT RECOMMEND LEMON SWABS. PT HAD DRIED SCANT AMOUNT OF BLOOD IN MOUTH THIS MORNING WITH NO SOURCE FOUND. SINCE ORAL CARE COMPLETED NO FURTHER BLOODY DISCHARGE. PT HAS BEEN VERY SLEEPY BUT AROUSES EASILY WHEN CHECKED ON. LIANE SWALLOW EVAL SCHEDULED FOR TOMORROW.
[2024-01-31 19:56] VITALS: BP 109/76
[2024-02-01 03:20] VITALS: BP 119/87
--- NOTE | 2024-02-01 04:49 | NUR ---
SHIFT SUMMARY: "SHANITA" IS A&OX2. VSS, NO ACUTE EVENTS THIS SHIFT. PT REMAINS TACHYPNEIC, MAINTAINING SATS 88-93% ON 4-5 L VIA NC, CONTINUOUS PULSE OX IN PLACE. PT IS NPO WHILE AWAITING SWALLOW STUDY, ORAL CARE PROVIDED PT ALLOWED. BILATERAL IV'S PATENT, IV FLUIDS INFUSING. LEMA PATENT, DRAINING YELLOW URINE WITH SEDIMENT. ATTENDS IN PLACE. PT DID HAVE A BOWEL MOVEMENT THIS SHIFT. PT HAS COMPLAINED OF PAIN WHICH HE REPORTS HAS IMPROVED TO THE POINT HE COULD SLEEP WITH MEDICATIONS PER SEP. BED ALARM ON FOR SAFETY. HE IS LYING IN BED WITH THE CALL LIGHT IN REACH. WILL GIVE REPORT TO DAY SHIFT RN.
[2024-02-01 05:14] LABS: Hematocrit 25.6 % (37.0-53.0); Hemoglobin 8.4 g/dL (13.5-17.5); Mean Corpuscular HGB 28.9 pg (26.0-34.0); Mean Corpuscular HGB Conc 32.8 g/dL (31.5-36.5); Mean Corpuscular Volume 88 fL (80-100); NRBC ABSOLUTE 0.19 K/mm3 (0.00-0.02); NRBC Auto 0.4 /100 WBC (0.0-0.2); RDW Coefficient Variation 16.6 % (11.7-14.2); RDW Standard Deviation 52.4 fL (35.1-46.3); Red Blood Cell Count 2.91 M/mm3 (4.30-5.90)
[2024-02-01 05:33] LABS: Platelet Count 24 K/mm3 (150-400)
[2024-02-01 05:43] LABS: Albumin, Blood 2.1 g/dL (3.4-5.0); Anion Gap 16 mmol/L (3-11); Blood Urea Nitrogen 40 mg/dL (8-24); Bun/Creatinine Ratio 32.8 (12.0-20.0); CO2, Blood 21 mmol/L (21-32); Chloride, Blood 111 mmol/L (98-108); Creatinine, Blood 1.22 mg/dL (0.60-1.20); Glomerular Filtration Rate 63 (60-); Glucose, Blood 90 mg/dL (70-99); Potassium, Blood 3.4 mmol/L (3.5-5.5); Sodium, Blood 145 mmol/L (136-145)
[2024-02-01] MEDS ORDERED: Pantoprazole Sodium 40 MG Injection IV SCH (06:00)
[2024-02-01 06:27] LABS: BAND PERCENT MAN 12 % (0-8); BASOPHILS PERCENT MAN 0 % (0-2); BLASTS PERCENT MAN 9 % (0-0); EOSINOPHILS PERCENT MAN 0 % (0-6); LYMPHOCYTES ABSOLUTE MAN 18.83 K/mm3 (0.84-5.20); LYMPHOCYTES PERCENT MAN 35 % (21-46); METAMYELOCYTE ABSOLUTE MAN 1.61 K/mm3 (0.00-0.00); METAMYELOCYTE PERCENT MAN 3 % (0-0); MONOCYTES ABSOLUTE MAN 4.84 K/mm3 (0.16-1.47); MONOCYTES PERCENT MAN 9 % (4-13); MYELOCYTE ABSOLUTE MAN 9.68 K/mm3 (0.00-0.00); MYELOCYTE PERCENT MAN 18 % (0-0); NEUTROPHILS ABSOLUTE MAN 13.98 K/mm3 (1.96-9.15); SEG NEUTROPHILS PERCENT MAN 14 % (41-73); TOTAL CELLS COUNTED 100
[2024-02-01 07:18] VITALS: BP 137/95
[2024-02-01] MEDS ORDERED: CALCIUM GLUC IN NACL, ISO-OSM 100 ML IV ONE (08:55)
[2024-02-01] MEDS ORDERED: Potassium Chloride 20 MEQ/15 ML UDC PO ONE (13:30)
[2024-02-01] MEDS ORDERED: Vancomycin HCL 1,000 MG in NS 250 ML IV SCH (14:00)
[2024-02-01 15:07] VITALS: BP 120/78
--- NOTE | 2024-02-01 19:45 | NUR ---
SHIFT SUMMARY: PT IS A/O X 3, BEDREST AT THIS TIME. PLEASANT AND COOPERATIVE WITH CARE. PT HAD NO S/S OF HALLUCINATIONS TODAY. MUCH MORE ALERT AND RESPONDING APPROPRIATELY TO QUESTIONS TODAY. PT HAD BARRIUM SWALLOW EVAL. PT TOLERATING DIET ORDER WELL WITHOUT S/S OF CHOKING. PT IS ON 4 LPM VIA NC. PT CONTINUES TO OCCASIONALLY REMOVE NC AND WILL DESAT TO LOW 80'S AND GETS SOB. RECOVERS QUICKLY. DOES BENEFIT FROM NEBULIZER TX. PAIN TO BACK MANAGED WITH CURRENT PAIN MEDICATIONS. PT DEVELOPED BURSITIS TO R ELBOW. PT UTILIZING ICE PACK FOR PAIN.
[2024-02-01 20:14] VITALS: BP 124/96
[2024-02-01 23:45] LABS: VITAMIN D,1,25-DIHYDROXY 80.2 pg/mL (19.9-79.3)
[2024-02-02 02:15] LABS: Source, Urine Foley catheter
[2024-02-02 02:22] LABS: Appearance, Urine Turbid (Clear); Bilirubin, Urine Neg (Neg); Blood, Urine 5+ (Neg); Color, Urine Yellow (P-Yellow); Glucose Qualitative, Urine Neg (Neg); Ketones, Urine Neg (Neg); Leukocyte Esterase, Urine Neg (Neg); Nitrite, Urine Neg (Neg); Protein, Urine 2+ (Neg); Specific Gravity, Urine 1.015 (1.003-1.022); Urobilinogen, Urine NORM (Normal)
[2024-02-02 02:47] LABS: Bacteria Mod /hpf; Red Blood Cells, Urine 25-50 /hpf (0-2); Squamous Epithelial Cells Not Seen /hpf (Few); White Blood Cells, Urine 0-2 /hpf (0-5)
[2024-02-02 02:48] LABS: Amorphous Mod (0-Heavy); Uric Acid Crystals Mod /hpf
[2024-02-02 02:49] LABS: Mucus Light (0-Heavy)
[2024-02-02 04:26] VITALS: BP 140/112
[2024-02-02 05:01] LABS: Hematocrit 25.5 % (37.0-53.0); Hemoglobin 8.3 g/dL (13.5-17.5); Mean Corpuscular HGB 28.7 pg (26.0-34.0); Mean Corpuscular HGB Conc 32.5 g/dL (31.5-36.5); Mean Corpuscular Volume 88 fL (80-100); NRBC ABSOLUTE 0.23 K/mm3 (0.00-0.02); NRBC Auto 0.5 /100 WBC (0.0-0.2); RDW Coefficient Variation 16.8 % (11.7-14.2); RDW Standard Deviation 54.4 fL (35.1-46.3); Red Blood Cell Count 2.89 M/mm3 (4.30-5.90)
[2024-02-02 05:10] LABS: Platelet Count 22 K/mm3 (150-400); White Blood Cell Count 50.08 K/mm3 (4.00-11.30)
[2024-02-02 05:21] LABS: Albumin, Blood 2.1 g/dL (3.4-5.0); Anion Gap 12 mmol/L (3-11); Blood Urea Nitrogen 34 mg/dL (8-24); Bun/Creatinine Ratio 30.9 (12.0-20.0); CO2, Blood 24 mmol/L (21-32); Calcium, Blood 6.5 mg/dL (8.5-10.1); Chloride, Blood 112 mmol/L (98-108); Glomerular Filtration Rate 71 (60-); Glucose, Blood 125 mg/dL (70-99); Magnesium, Blood 1.4 mg/dL (1.6-2.4); Phosphorus, Blood 5.3 mg/dL (2.5-4.9); Potassium, Blood 3.1 mmol/L (3.5-5.5); Sodium, Blood 145 mmol/L (136-145)
[2024-02-02 05:39] LABS: BAND PERCENT MAN 14 % (0-8); BASOPHILS PERCENT MAN 0 % (0-2); BLASTS PERCENT MAN 39 % (0-0); EOSINOPHILS PERCENT MAN 0 % (0-6); LYMPHOCYTES % ATYPICAL MANUAL 1 % (0-0); LYMPHOCYTES PERCENT MAN 7 % (21-46); METAMYELOCYTE PERCENT MAN 2 % (0-0); MONOCYTES PERCENT MAN 11 % (4-13); MYELOCYTE ABSOLUTE MAN 6.51 K/mm3 (0.00-0.00); MYELOCYTE PERCENT MAN 13 % (0-0); NEUTROPHILS ABSOLUTE MAN 13.52 K/mm3 (1.96-9.15); SEG NEUTROPHILS PERCENT MAN 13 % (41-73); TOTAL CELLS COUNTED 100
--- NOTE | 2024-02-02 06:34 | NUR ---
SHIFT SUMMARY: SHANITA IS A&OX3-4. VSS, BP INCREASED THIS AM. LEMA PATENT DRAINING PURULENT LOOKING YELLOW URINE. LEMA WAS CHANGED THIS SHIFT, UA SENT TO LAB. PT IS TOLERATING PO INTAKE WELL, EDUCATED ON IMPORTANCE OF FOLLOWING ASPIRATION PRECAUTIONS. PT REPORTS INCREASED BACK PAIN WHEN SITTING UP FOR PO INTAKE. IV TO BILATERAL WRISTS PATENT. CONTINUOUS PULSE OX IN PLACE, HE IS MAINTAINING O2 SATS ON 4-5 L VIA NC. ATTENDS IN PLACE. HE IS LYING IN BEDW ITH THE CALL LIGHT IN REACH. WILL GIVE REPORT TO DAY SHIFT RN.
[2024-02-02 07:34] VITALS: BP 131/86
[2024-02-02] MEDS ORDERED: Potassium Chloride 10 Meq Tablet SA PO ONE (09:00)
[2024-02-02] MEDS ORDERED: Magnesium Sulf 2 GM/Water 50ML 50 ML IV ONE (09:05)
[2024-02-02] MEDS ORDERED: CALCIUM GLUC IN NACL, ISO-OSM 100 ML IV ONE (09:05)
[2024-02-02 13:16] LABS: Vancomycin, Trough 14.1 ug/mL (5.0-10.0)
[2024-02-02 15:09] VITALS: BP 116/74
--- NOTE | 2024-02-02 16:53 | NUR ---
SHIFT SUMMARY Pt remains A&Ox3, but forgetful at times this shift. Gen weakness and pain noted. Meds given and effective for pain. Tachypnea noted at times on 4L NC. Continuous pulse ox in place. Swanson patent. Pureed diet with mild thick, no straws. Meds crushed in applesauce. Pain and safety maintained. No needs id or verbalized at this time. Q2 hour turn in place.
[2024-02-02 21:14] VITALS: BP 136/96
[2024-02-03] VITALS (7 sets, daily range): BP systolic 120–145; BP diastolic 75–89
[2024-02-03 05:14] LABS: Hematocrit 24.9 % (37.0-53.0); Hemoglobin 7.9 g/dL (13.5-17.5); Mean Corpuscular HGB 28.5 pg (26.0-34.0); Mean Corpuscular HGB Conc 31.7 g/dL (31.5-36.5); Mean Corpuscular Volume 90 fL (80-100); NRBC ABSOLUTE 0.18 K/mm3 (0.00-0.02); NRBC Auto 0.4 /100 WBC (0.0-0.2); RDW Coefficient Variation 17.1 % (11.7-14.2); Red Blood Cell Count 2.77 M/mm3 (4.30-5.90)
[2024-02-03 05:23] LABS: White Blood Cell Count 50.59 K/mm3 (4.00-11.30)
[2024-02-03 05:24] LABS: Platelet Count 21 K/mm3 (150-400)
[2024-02-03 05:32] LABS: Albumin, Blood 2.1 g/dL (3.4-5.0); Anion Gap 10 mmol/L (3-11); Blood Urea Nitrogen 34 mg/dL (8-24); Bun/Creatinine Ratio 28.8 (12.0-20.0); CO2, Blood 25 mmol/L (21-32); Calcium, Blood 6.8 mg/dL (8.5-10.1); Chloride, Blood 111 mmol/L (98-108); Creatinine, Blood 1.18 mg/dL (0.60-1.20); Glomerular Filtration Rate 65 (60-); Glucose, Blood 105 mg/dL (70-99); Phosphorus, Blood 4.6 mg/dL (2.5-4.9); Potassium, Blood 3.4 mmol/L (3.5-5.5); Sodium, Blood 143 mmol/L (136-145)
--- NOTE | 2024-02-03 05:59 | NUR ---
1915 Assumed care of pt, bedside report completed. Shift plan of care reviewed with pt and all questions answered. Will need significant re-enforcement due to moderate short term memory loss. Pt A & O x 3 with short term memory loss, easily re-orients and is redirectable. Pt with modified diet and thickened liquids, to remain 90 deg upright 30-60 min after intake. Pt not able to have PO intake on bedside table due to forgetting to remain upright. Pt with uneventful shift, slept in short shifts tonight, awakens confused and tinking it is day time, re-orients easily though at times is not often to retain information for extended period of time. Please see full assessment for additional details.No further complaints or concerns at this time, will conitnue to monitor.
[2024-02-03 06:25] LABS: BAND PERCENT MAN 7 % (0-8); BASOPHILS PERCENT MAN 0 % (0-2); EOSINOPHILS ABSOLUTE MAN 1.01 K/mm3 (0.00-0.68); EOSINOPHILS PERCENT MAN 2 % (0-6); LYMPHOCYTES ABSOLUTE MAN 6.57 K/mm3 (0.84-5.20); LYMPHOCYTES PERCENT MAN 13 % (21-46); METAMYELOCYTE ABSOLUTE MAN 1.51 K/mm3 (0.00-0.00); METAMYELOCYTE PERCENT MAN 3 % (0-0); MONOCYTES ABSOLUTE MAN 3.54 K/mm3 (0.16-1.47); MONOCYTES PERCENT MAN 7 % (4-13); MYELOCYTE ABSOLUTE MAN 6.07 K/mm3 (0.00-0.00); MYELOCYTE PERCENT MAN 12 % (0-0); NEUTROPHILS ABSOLUTE MAN 12.64 K/mm3 (1.96-9.15); SEG NEUTROPHILS PERCENT MAN 18 % (41-73); TOTAL CELLS COUNTED 100
[2024-02-03 06:26] LABS: BLASTS PERCENT MAN 38 % (0-0)
[2024-02-03] MEDS ORDERED: CALCIUM GLUC IN NACL, ISO-OSM 100 ML IV ONE (08:30)
[2024-02-03] MEDS ORDERED: Magnesium Sulf 2 GM/Water 50ML 50 ML IV ONE (08:30)
[2024-02-03] MEDS ORDERED: Potassium Chloride 10 Meq Tablet SA PO ONE (09:00)
[2024-02-03] MEDS ORDERED: Potassium Chloride 10 Meq Tablet SA PO SCH (09:00)
--- NOTE | 2024-02-03 09:44 | NUR ---
0940-VERBAL FROM DR. LOW TO CHANGE 40MEQ ER POTASSIUM TO POTASSIUM 40MEQ PILL CRUSHABLE FORM (NON-ER).
[2024-02-03] MEDS ORDERED: Potassium Chloride 20 MEQ/15 ML UDC PO ONE (09:50)
--- NOTE | 2024-02-03 12:36 | NUR ---
PT SHOWING SIGNS OF AIR HUNGER, RT AT BEDSIDE. DR. LOW NOTIFIED. MD WILL COME TO BEDSIDE.
[2024-02-03] MEDS ORDERED: NS 500 ML IV SCH (12:50)
[2024-02-03] MEDS ORDERED: Morphine Sulfate 20 MG/1ML 1 ML Oral Syringe SL PRN ×2 (12:50→16:10)
[2024-02-03] MEDS ORDERED: Furosemide 10 MG/ML 4ML Vial IV ONE (14:00)
--- NOTE | 2024-02-03 17:55 | NUR ---
SUMMARY PT ALERT AND ORIENTED X3-4 AT BEDSIDE. CURRENTLY RECIEVING 1 UNIT PRBCS. 7L NC OR 7L FACE MASK REQUIRED TO KEEP O2 SAT >90%. PT HAD TELE HEALTH APPIONTMENT WITH [facility]. TO FOLLOW UP TOMORROW. POOR PO INTAKE. FOLLOW DRAINING TO GRAVITY.
--- NOTE | 2024-02-03 18:19 | NUR ---
DR. GARCIA AT [facility] REQUESTED THAT DR. LOW OR WHOM EVER WERE CARING FOR PT PLEASE PAGE HIM TOMORROW. DR. LOW NOTIFIED.
[2024-02-04] MEDS ORDERED: Piperacillin/Tazobactam Sod 4.5 GM in NS 100 ML IV SCH (02:00)
[2024-02-04 02:37] VITALS: BP 122/89
[2024-02-04 05:13] LABS: Hematocrit 30.4 % (37.0-53.0); Mean Corpuscular HGB 29.4 pg (26.0-34.0); Mean Corpuscular HGB Conc 32.9 g/dL (31.5-36.5); Mean Corpuscular Volume 89 fL (80-100); NRBC ABSOLUTE 0.19 K/mm3 (0.00-0.02); NRBC Auto 0.3 /100 WBC (0.0-0.2); RDW Coefficient Variation 16.7 % (11.7-14.2); RDW Standard Deviation 54.3 fL (35.1-46.3)
[2024-02-04 05:21] LABS: Platelet Count 23 K/mm3 (150-400); White Blood Cell Count 57.57 K/mm3 (4.00-11.30)
[2024-02-04 06:02] LABS: Albumin, Blood 2.2 g/dL (3.4-5.0); Anion Gap 13 mmol/L (3-11); Blood Urea Nitrogen 35 mg/dL (8-24); Bun/Creatinine Ratio 26.7 (12.0-20.0); CO2, Blood 25 mmol/L (21-32); Calcium, Blood 6.9 mg/dL (8.5-10.1); Chloride, Blood 110 mmol/L (98-108); Creatinine, Blood 1.31 mg/dL (0.60-1.20); Glomerular Filtration Rate 57 (60-); Glucose, Blood 96 mg/dL (70-99); Magnesium, Blood 1.7 mg/dL (1.6-2.4); Phosphorus, Blood 4.9 mg/dL (2.5-4.9); Potassium, Blood 3.4 mmol/L (3.5-5.5); Sodium, Blood 145 mmol/L (136-145)
[2024-02-04 06:18] LABS: BAND PERCENT MAN 10 % (0-8); BASOPHILS PERCENT MAN 0 % (0-2); BLASTS PERCENT MAN 19 % (0-0); EOSINOPHILS PERCENT MAN 0 % (0-6); LYMPHOCYTES % ATYPICAL MANUAL 2 % (0-0); LYMPHOCYTES ABSOLUTE MAN 12.66 K/mm3 (0.84-5.20); LYMPHOCYTES PERCENT MAN 20 % (21-46); METAMYELOCYTE ABSOLUTE MAN 0.57 K/mm3 (0.00-0.00); METAMYELOCYTE PERCENT MAN 1 % (0-0); MONOCYTES ABSOLUTE MAN 5.75 K/mm3 (0.16-1.47); MONOCYTES PERCENT MAN 10 % (4-13); MYELOCYTE ABSOLUTE MAN 7.48 K/mm3 (0.00-0.00); MYELOCYTE PERCENT MAN 13 % (0-0); NEUTROPHILS ABSOLUTE MAN 20.14 K/mm3 (1.96-9.15); SEG NEUTROPHILS PERCENT MAN 25 % (41-73); TOTAL CELLS COUNTED 100
[2024-02-04 07:27] LABS: PTHRP BY LC-MS/MS,PLASMA 3.3 pmol/L (0.0-2.3)
[2024-02-04 07:59] VITALS: BP 149/91
[2024-02-04] MEDS ORDERED: Potassium Chloride 10 Meq Tablet SA PO ONE (09:00)
[2024-02-04] MEDS ORDERED: CALCIUM GLUC IN NACL, ISO-OSM 100 ML IV ONE (09:20)
[2024-02-04 13:47] LABS: Vancomycin, Trough 18.4 ug/mL (5.0-10.0)
[2024-02-04 14:43] VITALS: BP 129/88
[2024-02-04 14:50] LABS: Hematocrit 31.5 % (37.0-53.0); Hemoglobin 10.3 g/dL (13.5-17.5); Mean Corpuscular HGB 28.6 pg (26.0-34.0); Mean Corpuscular HGB Conc 32.7 g/dL (31.5-36.5); Mean Corpuscular Volume 88 fL (80-100); NRBC ABSOLUTE 0.14 K/mm3 (0.00-0.02); NRBC Auto 0.3 /100 WBC (0.0-0.2); RDW Coefficient Variation 16.7 % (11.7-14.2); RDW Standard Deviation 53.1 fL (35.1-46.3); White Blood Cell Count 49.32 K/mm3 (4.00-11.30)
[2024-02-04 15:03] LABS: Platelet Count 23 K/mm3 (150-400)
[2024-02-04 15:32] LABS: BAND PERCENT MAN 6 % (0-8); BASOPHILS PERCENT MAN 0 % (0-2); BLASTS PERCENT MAN 37 % (0-0); EOSINOPHILS PERCENT MAN 0 % (0-6); LYMPHOCYTES ABSOLUTE MAN 2.46 K/mm3 (0.84-5.20); LYMPHOCYTES PERCENT MAN 5 % (21-46); METAMYELOCYTE ABSOLUTE MAN 6.41 K/mm3 (0.00-0.00); METAMYELOCYTE PERCENT MAN 13 % (0-0); MONOCYTES ABSOLUTE MAN 2.95 K/mm3 (0.16-1.47); MONOCYTES PERCENT MAN 6 % (4-13); MYELOCYTE ABSOLUTE MAN 2.95 K/mm3 (0.00-0.00); MYELOCYTE PERCENT MAN 6 % (0-0); PROMYELOCYTE ABSOLUTE MAN 2.46 K/mm3 (0.00-0.00); PROMYELOCYTE PERCENT MAN 5 % (0-0); SEG NEUTROPHILS PERCENT MAN 22 % (41-73); TOTAL CELLS COUNTED 100
--- NOTE | 2024-02-04 16:21 | NUR ---
SHIFT SUMMARY PATIENT IN BED THIS SHIFT. LEMA DRAINING TO GRAVITY, YELLOW URINE. PULLING AT OXYGEN LINES AND DISCONNECTING IV SEVERAL TIMES, PLACED ON VIDEO MONITORING. COGNITION DECLINING SHIFT CONTINUES, ABOUT 1615 PATIENT BEGAN TO VERBALIZE SEEING LIZARDS ON THE CEILING. PATIENT DECLINED TO PARTICIPATE IN SPEECH THERAPY. NOTED TO HAVE MILD BLEEDING COMING FROM HIS MOUTH AND HEAD OF PENIS, NOT MEATUS. PURPURA PRESENT TO CHEST AND ABDOMEN AREA, DOCTOR EDWIN MADE AWARE OF ALL BLEEDING NOTED SO FAR, LABS ORDERED. PATIENT MAKING STATEMENTS THAT HE DOESN'T WANT TREATMENT ANY LONGER, SPOUSE NOT IN AGREEMENT AT THIS TIME. CONTINUES ON PUREE DIET AND THICKENED LIQUIDS, PILLS CRUSHED WITH APPLESAUCE. TOLERATING ZOSYN AND VANCO WELL. 2 BM EPISODES THIS SHIFT. CALL LIGHT IN REACH, CARES ONGOING.
--- NOTE | 2024-02-04 18:10 | NUR ---
RETURNED PHONE CALL TO DAUGHTER AMANDA WITH PATIENT'S PERMISSION. SEEKING UPDATE ON PATIENT CONDITION.
[2024-02-04 19:44] VITALS: BP 140/100
[2024-02-05 03:45] VITALS: BP 133/96
--- NOTE | 2024-02-05 04:01 | NUR ---
SHIFT SUMMARY PT. IS MONITORED BY [employer], AND THE STAFF RECEIVED MULTIPLE CALLS ABOUT PT. PULLING OFF O2 MASK AND NASAL CANNULA. PT. IS ON 4+LITERS O2, CONTINUOUS O2 MONITORING 86-94%. LEMA SECURELY IN PLACE, DRAINING WELL, DARK ORANGE URINE. 1 LARGE BM ON THIS SHIFT. IV ABX INFUSED. 2X PRN PAIN MEDICATED. ORAL CARE, THICKENED LIQUIDS, MEDS CRUSHED WITH APPLESAUCE ADMINISTERED. PT. IS RESTLESS INTERMITTENTLY. ONE CALL TO SPOUSE THIS HS, PT A&O X1-2. NO ACUTE EVENTS DURING THIS SHIFT. FREQUENT CHECKS, BED AT THE LOWEST POSITION. WILL HANDOFF TO THE INCOMING SHIFT NURSE.
[2024-02-05 05:17] LABS: Hematocrit 31.3 % (37.0-53.0); Hemoglobin 9.9 g/dL (13.5-17.5); Mean Corpuscular HGB 28.6 pg (26.0-34.0); Mean Corpuscular HGB Conc 31.6 g/dL (31.5-36.5); Mean Corpuscular Volume 91 fL (80-100); NRBC ABSOLUTE 0.17 K/mm3 (0.00-0.02); NRBC Auto 0.3 /100 WBC (0.0-0.2); RDW Coefficient Variation 16.9 % (11.7-14.2); RDW Standard Deviation 55.8 fL (35.1-46.3); Red Blood Cell Count 3.46 M/mm3 (4.30-5.90)
[2024-02-05 05:23] LABS: Platelet Count 24 K/mm3 (150-400)
[2024-02-05 05:24] LABS: White Blood Cell Count 62.15 K/mm3 (4.00-11.30)
[2024-02-05 05:40] LABS: Albumin, Blood 2.1 g/dL (3.4-5.0); Anion Gap 11 mmol/L (3-11); Blood Urea Nitrogen 36 mg/dL (8-24); Bun/Creatinine Ratio 26.1 (12.0-20.0); CO2, Blood 28 mmol/L (21-32); Calcium, Blood 6.7 mg/dL (8.5-10.1); Chloride, Blood 111 mmol/L (98-108); Creatinine, Blood 1.38 mg/dL (0.60-1.20); Glomerular Filtration Rate 54 (60-); Glucose, Blood 101 mg/dL (70-99); Magnesium, Blood 1.6 mg/dL (1.6-2.4); Phosphorus, Blood 5.7 mg/dL (2.5-4.9); Potassium, Blood 3.5 mmol/L (3.5-5.5); Sodium, Blood 146 mmol/L (136-145)
[2024-02-05 05:47] LABS: BAND PERCENT MAN 20 % (0-8); BASOPHILS PERCENT MAN 0 % (0-2); BLASTS PERCENT MAN 22 % (0-0); EOSINOPHILS PERCENT MAN 0 % (0-6); LYMPHOCYTES ABSOLUTE MAN 9.94 K/mm3 (0.84-5.20); LYMPHOCYTES PERCENT MAN 16 % (21-46); METAMYELOCYTE ABSOLUTE MAN 2.48 K/mm3 (0.00-0.00); METAMYELOCYTE PERCENT MAN 4 % (0-0); MONOCYTES ABSOLUTE MAN 8.07 K/mm3 (0.16-1.47); MONOCYTES PERCENT MAN 13 % (4-13); MYELOCYTE ABSOLUTE MAN 4.35 K/mm3 (0.00-0.00); MYELOCYTE PERCENT MAN 7 % (0-0); NEUTROPHILS ABSOLUTE MAN 23.61 K/mm3 (1.96-9.15); SEG NEUTROPHILS PERCENT MAN 18 % (41-73); TOTAL CELLS COUNTED 100
--- NOTE | 2024-02-05 06:01 | NUR ---
CRITICAL LAB VALUES RECEIVED FROM THE LAB OVER THE PHONE @6508. PLATELETS 24.0 AND WBC 52.14 WILL NOTIFY THE PROVID[facility]
[2024-02-05 07:26] VITALS: BP 128/87
--- NOTE | 2024-02-05 10:14 | NUR ---
CALLED [employer] [facility] MONITORING SYSTEM THIS AM ABOUT 1000, PATIENT CONTINUES TO REMOVE OXYGEN AND PULL AT LINES, [facility] MONITORING HAS NOT REDIRECTED OR ALERTED STAFF OF THIS BEHAVIOR AND PATIENT FOUND SEVERAL TIMES WITH OXYGEN REMOVED AND SATING IN HIGH 70'S.
[2024-02-05] MEDS ORDERED: CALCIUM GLUC IN NACL, ISO-OSM 100 ML IV ONE (12:10)
[2024-02-05 15:22] VITALS: BP 138/98
[2024-02-05 19:35] VITALS: BP 137/93
[2024-02-06] MEDS ORDERED: NS 0 ML IV ONE (02:18)
[2024-02-06 04:56] LABS: Hematocrit 30.6 % (37.0-53.0); Hemoglobin 9.7 g/dL (13.5-17.5); Mean Corpuscular HGB Conc 31.7 g/dL (31.5-36.5); Mean Corpuscular Volume 91 fL (80-100); NRBC ABSOLUTE 0.11 K/mm3 (0.00-0.02); NRBC Auto 0.2 /100 WBC (0.0-0.2); RDW Standard Deviation 56.8 fL (35.1-46.3); Red Blood Cell Count 3.35 M/mm3 (4.30-5.90)
[2024-02-06 05:10] LABS: Platelet Count 25 K/mm3 (150-400); White Blood Cell Count 56.37 K/mm3 (4.00-11.30)
[2024-02-06 05:22] LABS: Albumin, Blood 2.1 g/dL (3.4-5.0); Anion Gap 12 mmol/L (3-11); Blood Urea Nitrogen 37 mg/dL (8-24); Bun/Creatinine Ratio 25.5 (12.0-20.0); CO2, Blood 28 mmol/L (21-32); Calcium, Blood 6.7 mg/dL (8.5-10.1); Chloride, Blood 109 mmol/L (98-108); Creatinine, Blood 1.45 mg/dL (0.60-1.20); Glomerular Filtration Rate 51 (60-); Glucose, Blood 90 mg/dL (70-99); Magnesium, Blood 1.7 mg/dL (1.6-2.4); Phosphorus, Blood 5.7 mg/dL (2.5-4.9); Potassium, Blood 3.7 mmol/L (3.5-5.5); Sodium, Blood 145 mmol/L (136-145)
[2024-02-06 05:55] LABS: BAND PERCENT MAN 13 % (0-8); BASOPHILS PERCENT MAN 0 % (0-2); BLASTS PERCENT MAN 26 % (0-0); EOSINOPHILS ABSOLUTE MAN 0.56 K/mm3 (0.00-0.68); EOSINOPHILS PERCENT MAN 1 % (0-6); LYMPHOCYTES ABSOLUTE MAN 9.01 K/mm3 (0.84-5.20); LYMPHOCYTES PERCENT MAN 16 % (21-46); METAMYELOCYTE ABSOLUTE MAN 2.81 K/mm3 (0.00-0.00); METAMYELOCYTE PERCENT MAN 5 % (0-0); MONOCYTES ABSOLUTE MAN 5.07 K/mm3 (0.16-1.47); MONOCYTES PERCENT MAN 9 % (4-13); MYELOCYTE ABSOLUTE MAN 7.32 K/mm3 (0.00-0.00); MYELOCYTE PERCENT MAN 13 % (0-0); NEUTROPHILS ABSOLUTE MAN 16.34 K/mm3 (1.96-9.15); PROMYELOCYTE ABSOLUTE MAN 0.56 K/mm3 (0.00-0.00); PROMYELOCYTE PERCENT MAN 1 % (0-0); SEG NEUTROPHILS PERCENT MAN 16 % (41-73); TOTAL CELLS COUNTED 100
--- NOTE | 2024-02-06 06:34 | NUR ---
SHIFT SUMMARY PT. IS A&O X 1-3, CONTINUES IN BEDREST. PT. HAS OXYMASK AND NASAL CANNULA, TOTAL O2 +5L AT ALL TIMES, AND KEEPS PULLING THE MASK AND CANNULA OUT, CAUSING THE O2 SATURATION TO DROP BELOW 90%. REDIRECTED MULTIPLE TIMES T/O THE NIGHT. AT HS PT. MORE ALERT, USING HUMOR, AND HAVING CONVERSTATION, AND BEING ABLE TO FOLLOW DIRECTIONS. PT'S MOUTH IS BLEEDING, AND LIPS ARE BLEEDING INTERMITTENTLY. ORAL CARE PRN AND QSHIFT. PT.IS VERY THIRSTY- STRICT I&O'S, AND NECTAR THICK ICE COLD WATER IS VERY HELPFUL. PT. HAS LEMA CATH, GOOD OUTPUT, INTACT, DRAINING WELL. PT'S IV ON RIGHT FOREARM IS LEAKY, POSITIONAL, AND HAS PURPLE AREA AROUND IT. PT. IS RESTLESS T/O THE NIGHT, MEDICATED ORDERED (SEE EMAR.) IV ABX INFUSED ORDERED. NO ACUTE EVENTS DURING THIS SHIFT, BED ALARM ON FOR SAFETY, BED AT THE LOWEST POSITION, FREQUENT CHECKS WITH ALL THE STAFF MEMBERS AROUND, SINCE THE O2 CONTINUOUS SATURATION MONITOR ALARM ALERTS MULTIPLE TIMES PER HR.
--- NOTE | 2024-02-06 06:44 | NUR ---
CRITCAL VALUES FROM THE LAB: WBC: 56.37, PLATELETS:25.0.
[2024-02-06 07:42] VITALS: BP 145/99
[2024-02-06] MEDS ORDERED: CALCIUM GLUC IN NACL, ISO-OSM 100 ML IV ONE ×2 (08:00→16:25)
--- NOTE | 2024-02-06 18:09 | NUR ---
SHIFT SUMMARY; PATIENT HAS INCREASED CONFUSION NOTED DURING DAY SHIFT. HE IS NOTED TO PULL OFF O2 AND DESATS RAPIDLY. HE IS WEARING O2 MASK WELL NASAL CANNULA TOTAL O2 VOLUME [address] MONITOR IN PLACE AND O2 AT 94% AT THIS TIME. HE PULLS AT LINES AND CORDS DURING DAY. STAFF CONSTANTLY REPLACES O2 TO MAINTAIN SATS ABOVE 90%. PAIENT ATTEMPTS TO REMOVE IV AND IV IS COVERED WITH WRAP TO KEEP HIM FROM PULLING IT OUT. HE HAS LARGE SOFT BM TODAY. LEMA CATHETER IN PLACE TO DOWNDRAIN. YELLOW CLOUDY URINE NOTED WITH MUCH SEDEMANT. NO NEW SKIN ISSUES ARE NOTED. SCATTERED BRUISES AND MOTTLING TO ALL 4 EXTREMITES WITH DRY SCALY RASH TO FRONT TORSO. SPOUSE IN AND OUT OF ROOM DURING DAY. SHE SAYS SHE IS WAITING TO SPEAK WITH FROM ONCOLOGY TO SEE IF TREATMENT SHOULD BE CONTINUED. WILL CONTINUE TO MONITOR AND OFFER SUPPORT NEEDED TO FAMILY.
[2024-02-06 19:58] VITALS: BP 133/102
--- NOTE | 2024-02-07 02:32 | NUR ---
INTERMITTENTLY PULLS OFF O2 MASK AND CANNULA. REDIRECTED AND PT QUICKLY FORGETS AND REPEATS PULLING THEM OFF. CONT PULSE OX SATS IN THE 80'S TO 90'S. HOB ELEVATED AND IVF INFUSING. TOLERATES THICKENED LIQUIDS WITH SPOON FEEDING. CALL LIGHT IN REACH
[2024-02-07 03:22] VITALS: BP 125/88
--- NOTE | 2024-02-07 05:16 | NUR ---
FIELD ATTENDANT SUMMARY BP ELEVATED AT SHIFT START, WAS AGITATED RE O2 CANNULA AND MASK. REDIRECTION AND EVENTUALLY BILAT WRIST SOFT RESTRAINTS FOR PULLING AT LINES, EVENTUALLY BP DROPPED TO WNL AND O2 SATS (CONT PULSE OX) IN THE 90'S. IV ANTIBIOTICS INFUSING PER MAR AND PO THICKENED LIQUIDS TOLERATED. HAS BEEN RESTING QUIETLY WITH OCCASIONAL INTERRUPTION. CALL LIGHT IN REACH, RAILS UP X 3 AND BED IN LOW POSITION FOR SAFETY. AKASH CONTINUE TO MONITOR/ASSESS. HOB ELEVATED FOR COMFORT
[2024-02-07 06:09] LABS: Hematocrit 29.1 % (37.0-53.0); Hemoglobin 9.4 g/dL (13.5-17.5); Mean Corpuscular HGB 29.4 pg (26.0-34.0); Mean Corpuscular HGB Conc 32.3 g/dL (31.5-36.5); Mean Corpuscular Volume 91 fL (80-100); NRBC ABSOLUTE 0.15 K/mm3 (0.00-0.02); NRBC Auto 0.3 /100 WBC (0.0-0.2); RDW Coefficient Variation 16.8 % (11.7-14.2); RDW Standard Deviation 55.8 fL (35.1-46.3)
[2024-02-07 06:25] LABS: White Blood Cell Count 55.75 K/mm3 (4.00-11.30)
[2024-02-07 06:26] LABS: Platelet Count 25 K/mm3 (150-400)
[2024-02-07 06:28] LABS: Anion Gap 11 mmol/L (3-11); Blood Urea Nitrogen 40 mg/dL (8-24); Bun/Creatinine Ratio 27.4 (12.0-20.0); CO2, Blood 28 mmol/L (21-32); Calcium, Blood 6.6 mg/dL (8.5-10.1); Chloride, Blood 109 mmol/L (98-108); Creatinine, Blood 1.46 mg/dL (0.60-1.20); Glomerular Filtration Rate 50 (60-); Glucose, Blood 114 mg/dL (70-99); Magnesium, Blood 1.7 mg/dL (1.6-2.4); Phosphorus, Blood 5.5 mg/dL (2.5-4.9); Potassium, Blood 3.5 mmol/L (3.5-5.5); Sodium, Blood 144 mmol/L (136-145)
[2024-02-07 06:41] LABS: BAND PERCENT MAN 13 % (0-8); BASOPHILS PERCENT MAN 0 % (0-2); BLASTS PERCENT MAN 23 % (0-0); EOSINOPHILS PERCENT MAN 0 % (0-6); LYMPHOCYTES ABSOLUTE MAN 6.13 K/mm3 (0.84-5.20); LYMPHOCYTES PERCENT MAN 11 % (21-46); METAMYELOCYTE PERCENT MAN 7 % (0-0); MONOCYTES ABSOLUTE MAN 2.23 K/mm3 (0.16-1.47); MONOCYTES PERCENT MAN 4 % (4-13); MYELOCYTE ABSOLUTE MAN 8.36 K/mm3 (0.00-0.00); MYELOCYTE PERCENT MAN 15 % (0-0); NEUTROPHILS ABSOLUTE MAN 21.74 K/mm3 (1.96-9.15); PROMYELOCYTE ABSOLUTE MAN 0.55 K/mm3 (0.00-0.00); PROMYELOCYTE PERCENT MAN 1 % (0-0); SEG NEUTROPHILS PERCENT MAN 26 % (41-73); TOTAL CELLS COUNTED 100
[2024-02-07 08:06] VITALS: BP 143/104
[2024-02-07] MEDS ORDERED: Piperacillin/Tazobactam Sod 3.375 GM in NS 100 ML IV SCH (14:00)
[2024-02-07 14:24] LABS: Vancomycin, Trough 22.8 ug/mL (5.0-10.0)
[2024-02-07 14:41] VITALS: BP 126/90
--- NOTE | 2024-02-07 16:24 | NUR ---
Met with pt's and daughter this afternoon before including patient in the conversation. The patient has been requiring intermittent restraints with soft cuffs due to his confusion and pulling off his oxygen mask. He desaturated today into the 80's when ST attempted mouth care, so he was made NPO until next swallow evaluation tomorrow. The patient and were told today there is a possible treatment plan today that can be done as outpatient for his AML, at [facility]. Concerns from this policy writer typist regarding pt's ability to d/c from the hospital for cancer treatment relate to his 8L oxygen need, his ongoing weakness, anemia and compromised airway as the has told me numerous times she cannot care for the patient at home due to no help, no wheelchair access in the home, and no assistance for rides to chemo treatments. Reached out to [facility] today. We discussed the plan being put forth at this time, and will continue to discuss this- until resolution.
[2024-02-07] MEDS ORDERED: CALCIUM GLUC IN NACL, ISO-OSM 100 ML IV SCH (17:00)
--- NOTE | 2024-02-07 18:08 | NUR ---
SHIFT SUMMARY; PATIENT TAKEN OUT OF RETRAITS TODAY BY AT 1400. OXY MASK REMOVED ALSO DURING MEETING WITH PALLIATIE CARE AND FAMILY AND MD. PATIENT PLACED ON 8 LITERS O2 VIA NASAL CANNULA. HE WAS PROVIDED WITH GLASS OF WATER AND NO DIIFFICLTY SWALLOWING OR CHOKING NOTED. HOWEVER NOTED AFTER PATIENT SITTING UP IN BED FOR A FEW MINUTES HE DESATS TO 88% EVEN ON 88 LITERS O2. THIS RN WATCHES TO SEE IF PATIENT RECOVERS AND FAMILY PLACED MASK BACK ON HIM WHEN RN HAD LEFT ROOM. PATIENT HAS INCREASED CONFUSING LATER THIS AFTERNOON AND PULLED HIS IV OUT. AT THIS WRITING THIS RN UNABLE TO GET NEW IV FOR CALCIUM GLUC IV DRIP. PATIENT IS HALLUCINATING AND PULLS HIS OXYGEN OFF REPEATEDLY. THIS RN SITS IN ROOM WITH PATIENT NO SITTER IS AVAIABLE.
[2024-02-07 19:50] VITALS: BP 122/102
[2024-02-07] MEDS ORDERED: Vancomycin HCL 750 MG in NS 250 ML IV SCH (20:00)
[2024-02-08 03:53] VITALS: BP 121/108
--- NOTE | 2024-02-08 05:22 | NUR ---
BOOK SHELVER SUMMARY DBP ELEVATED, OTHERWISE VSS. EASILY AGITATED, CONTINUE TO PULL OFF O2 NASAL CANNULA AND CONT PULSE OX STRIP AT INTERVALS. MULTIPLE ATTEMPTS TO DISTRACT PT FROM PULLING AT LINES. LINES SECURED WITH COBAN. NEW IV WAS PLACED IN LEFT ARM NEAR SHIFT COMMENCE. IV ANTIBIOTICS ADMINISTERED ORDERED - SEE MAR FOR DETAILS. HOB ELEVATED FOR COMFORT. RAILS UP X 3 AND CALL LIGHT IN REACH. HAS BEEN RESTING INTERMITTENTLY. LEMA DRAINING. SOME ORAL BLEEDING NOTED DUE TO MOUTH BREATHER. ORAL CARE EFFCTIVE. TO HAVE SWALLOW STUDY LATER TODAY. VERBAL RESPONSE APPROPRIATE AT TIMES, THEN SEEMS TO FORGET EASILY AND QUICLKY. BED IN LOW POSITION FOR SAFETY. ABLE TO REPOSITION SELF IN BED WITHOUT ASSIST. WILL CONTINUE TO MONITOR
[2024-02-08 07:25] VITALS: BP 115/86
--- NOTE | 2024-02-08 10:48 | NUR ---
Met with pt this morning; he was alert and oriented x's 2. He denies pain, but did appear SOB. The patient's reports speaking to oncologist last night, and Coco has agreed to comfort care. Yesterday morning the patient stated he wanted treatment, but only if it was going to cure him. Subsequent conversations have led patient to decide on comfort care as well. The current plan is for patient to d/c to a hospice bed at the [place]. Discussion with Dr. Stewart, he requests we continue efforts for pt's comfort, but to also be mindful of patient and 's request he remain alert [facility]. Will continue with nebulizer treatments for now, and continue to monitor and make changes as needed t/o pt's stay. Bedside RN aware and in agreement, and v/u to call Palliative Care or physician for changes in pt's condition.
[2024-02-08] MEDS ORDERED: Morphine Sulfate 20 MG/1ML 1 ML Oral Syringe SL PRN (10:55)
--- NOTE | 2024-02-08 17:58 | NUR ---
PATIENTCHANGED TO COMFORT CARE AT 0930, NO CHANGES, PATIENT FORGETFUL AND CONFUSED AT TIMES AND THEN RETURN TO SCREAMING AND SWEARING, FAMILY MEET WITH PALLIATIVE CARE RN, CALL LIGHT WITH IN REACH, ABLE TO CLEARLY MAKE NEEDS KNOWN AT TIMES, WILL RELAY TO PM RN
[2024-02-08 20:20] VITALS: BP 109/86
--- NOTE | 2024-02-09 04:28 | NUR ---
SHIFT SUMMARY: Pt admitted for sepsis and is a DNR. is alert and some times able to make needs known. ADLs have been 1-2p depending on activity. Some air hunger noted and was treated with PRN roxanal. Folly intact and draining cloudy yellow urine.
[2024-02-09 05:50] VITALS: BP 99/73
[2024-02-09] MEDS ORDERED: MORP20L SL (10:59)
[2024-02-09] MEDS ORDERED: Morphine Sulfate 20 MG/1ML 1 ML Oral Syringe SL PRN (11:30)
[2024-02-09 11:40] LABS: SARS-Cov-2 (COVID-19) PCR, MMC NEGATIVE (NEGATIVE)
--- NOTE | 2024-02-09 12:20 | NUR ---
PT THIS RN WAS CALLED TO THE PATIENTS ROOM AT 1206, FAMILY AT THE BEDSIDE, THE PT WAS . PTS WAS VERIFIED BY THE [employer] ADMINISTRATOR CLAUDIA. I PLACED A CALL TO TO NOTIFY HIM OF THE TIME OF
--- NOTE | 2024-02-09 13:44 | NUR ---
1030- PT APPEARS INCREASINGLY DYSPNIC, RR 36, MOUTH BREATHING ORAL CARE AND MEDICATED FOR AIR HUNGER. POSITIONED PILLOW FOR OPTIMAL HEAD POSITIONING
--- NOTE | 2024-02-09 13:52 | NUR ---
1140- PALLIATIVE AND IN THE ROOM. PT CONTINUES HAVING "AIR HUNGER" WITH INCREASED RESP RATE 36, ORAL CARE AND REPEATED ROXONOL. EXPLAINED PURPOSE OF ROXONOL IN AIR HUNGER TO AID IN RELAXING BREATHING. IN AGREEMENT TO KEEP PT COMFORTABLE. SHE STATES SHE HAS ALL SHE NEEDS, AWAITING FOR HER DAUGHTER TO ARRIVE, SHE WILL CALL FOR NEEDS
--- NOTE | 2024-02-09 13:55 | NUR ---
PT'S BODY TAKEN TO VIKKI BY PALMA AT 1317 [facility]IA [employer]. FAMILY HAD ALREADY GONE HOME AND TOOK ALL PT'S BELINGINGS.
== END 2024-02-09 12:06 | DRG 871 ==
LOC: ER 17:00 → MEDS 21:31 → PCU 21:31 → MEDS 01-30 03:17 → ENPENDDIS 02-09 11:27 → MEDS 02-09 12:06
PROVIDERS: Emergency Medicine; Family Medicine; Internal Medicine; Student in an Organized Health Care Education/Training Program; ADMIT Internal Medicine
PROC: 3E03329 Introduction of Other Anti-infective into Peripheral Vein, Percutaneous Approach (ICD-10-PCS; 2024-01-28)
PROC: 0T9B70Z Drainage of Bladder with Drainage Device, Via Natural or Artificial Opening (ICD-10-PCS; 2024-01-29)
PROC: 5A0935A Assistance with Respiratory Ventilation, Less than 24 Consecutive Hours, High Flow/Velocity Cannula (ICD-10-PCS; 2024-01-29)
PROC: 30233N1 Transfusion of Nonautologous Red Blood Cells into Peripheral Vein, Percutaneous Approach (ICD-10-PCS; principal; 2024-02-03)
DX: A41.9 Sepsis, unspecified organism (principal); E43 Unspecified severe protein-calorie malnutrition; J18.9 Pneumonia, unspecified organism; J96.21 Acute and chronic respiratory failure with hypoxia; G92.8 Other toxic encephalopathy; C92.00 Acute myeloblastic leukemia, not having achieved remission; N17.9 Acute kidney failure, unspecified; J44.0 Chronic obstructive pulmonary disease with (acute) lower respiratory infection; D62 Acute posthemorrhagic anemia; D47.1 Chronic myeloproliferative disease; Z68.1 Body mass index [BMI] 19.9 or less, adult; C96.6 Unifocal Langerhans-cell histiocytosis; D69.3 Immune thrombocytopenic purpura; Z51.5 Encounter for palliative care; Z66 Do not resuscitate; R65.20 Severe sepsis without septic shock; J84.10 Pulmonary fibrosis, unspecified; N48.6 Induration penis plastica; E04.1 Nontoxic single thyroid nodule; M75.100 Unspecified rotator cuff tear or rupture of unspecified shoulder, not specified as traumatic; E87.6 Hypokalemia; D63.0 Anemia in neoplastic disease; E83.42 Hypomagnesemia; M16.12 Unilateral primary osteoarthritis, left hip; E83.51 Hypocalcemia; J43.9 Emphysema, unspecified; Z87.19 Personal history of other diseases of the digestive system; Z98.890 Other specified postprocedural states; E78.5 Hyperlipidemia, unspecified; Z96.642 Presence of left artificial hip joint; Z87.891 Personal history of nicotine dependence; Z79.891 Long term (current) use of opiate analgesic; Z79.899 Other long term (current) drug therapy; Z99.81 Dependence on supplemental oxygen; Z86.010 Personal history of colon polyps; Z87.81 Personal history of (healed) traumatic fracture; Z78.1 Physical restraint status
CPT/HCPCS: 36415; 36430; 70450; 71045; 71046; 74230; 76770; 80053; 80069; 80202; 81001; 82140; 82306; 82310; 82330; 82542; 82652; 82803; 83605; 83735; 83970; 84145; 84443; 84484; 85025; 85027; 86850; 86900; 86901; 86923; 87040; 87086; 92526; 92610; 92611; 93005; 93010; 94640; 94664; 94760; 94762; 96365; 96367; 99285-25; A9270; C9113; J0456; J0612; J0696; J1940; J2060; J2270; J2543; J3370; J3475; J7030; J7050; J7120; P9016; U0002